=== PATIENT | male | born 1950 ===

== ENCOUNTER 2022-01-01 14:42 | Outpatient (RCR) | payer OTHER, SELFPAY ==
[2022-01-01 16:35] LABS: Basophils Absolute Auto 0.03 K/uL (0.00-0.30); Basophils Percent Auto 0.7 % (0.0-3.0); Eosinophils Absolute Auto 0.07 K/uL (0.00-0.50); Eosinophils Percent Auto 1.6 % (0.0-7.0); Hematocrit 40.9 % (37.0-53.0); Hemoglobin* 13.7 gm/dL (13.5-17.5); Immature Granulocytes Abs Auto 0.01 K/uL (0.00-0.30); Lymphocytes Percent Auto 12.4 % (20-44); Mean Corpuscular HGB Conc 34 gm/dL (32-36); Mean Corpuscular Hemoglobin 32 pg (26-34); Mean Corpuscular Volume 97 fL (80-100); Monocytes Percent Auto 11.5 % (0.0-11.0); Neutrophils Percent Auto 73.6 % (42.0-72.0); Platelet Count* 203 K/uL (140-440); Red Blood Count 4.23 m/uL (4.30-5.90); White Blood Count* 4.51 K/uL (4.50-11.00)
[2022-01-01 16:39] LABS: Slide Review Reflex No
[2022-01-01 16:43] LABS: Aspartate Amino Transferase* 27 U/L (12-35); Estimated Glomerular Filt Rate 80 ml/min
== END 2022-12-31 15:07 | disposition home or self-care (01) ==
LOC: LAB 14:42
PROVIDERS: Visit Provider Internal Medicine Rheumatology
DX: M31.6 Other giant cell arteritis (principal)
CPT/HCPCS: 36415; 82565; 84450; 85025